=== PATIENT | male | born 1960 | race Caucasian/White ===

== ENCOUNTER 2023-12-28 09:37 | Emergency (ER) | payer BC, SELFPAY ==
[2023-12-28 09:39] VITALS: BP 124/90
[2023-12-28 09:48] VITALS: BP 133/90
[2023-12-28 09:49] VITALS: BMI 26.4
--- NOTE | 2023-12-28 09:49 | ED.GENMED ---
History of Present Illness
General
Chief Complaint: Musculo-Skeletal Complaint
Source: patient
Exam Limitations: none
Time Seen by Provider: 12/28/23 09:46
Travel History
Have you had any contact with someone who has COVID-19?: No
Do you have any symptoms of coronavirus? Fever > 100 degrees, chills, cough, shortness of breath, sore throat, loss of taste or smell, muscle aches, or headache?: No
History of Present Illness
History of Present Illness:
63-year-old male complaining of left upper arm pain. Has been there for 2 weeks. Constant but at times waxes and wanes. No chest pain no shortness of breath. At times pain does radiate up towards the left side of the neck. No unusual headache.
No neurologic symptoms. No numbness tingling or weakness. No cardiac history.
Past History
Past History
ED Past Medical History: HTN and Hypercholesterolemia
ED Past Surgical History: Other (Inguinal hernia repair x4, umbilical hernia repair x1)
Social History
Tobacco: Non-smoker
Alcohol: Occasional
Drug: None
Personal:
Living: with family
Family History
Family History: Other (No significant)
Review of Systems
Review of Systems
All Other Systems: Not applicable
Constitutional: Denies fever
Respiratory: Denies trouble breathing
Cardiac: Denies chest pain, diaphoresis, palpitations or syncope
Phy Exam
Physical Exam
Physical Exam:
GENERAL: Alert and oriented in no apparent distress
EYE: Orbits normal.
NECK: Supple, no carotid bruit. Nontender
CARDIAC: Regular rate and rhythm without any obvious murmurs.
LUNGS: Clear breath sounds,normal
ABDOMEN: Soft, without focal tenderness or distention
NEUROLOGICAL: Alert and oriented , grossly non-focal. Layout Worker normal. Interosseous intact. Flexion extension at the wrist normal. Biceps intact. No shoulder pain with abduction at the shoulder.
SKIN: Warm and dry, no rash or lesion, no discoloration, skin intact.
MUSCULOSKELETAL: No edema,no deformity.Good color. Some pain with flexion at the shoulder and at this point patient points towards the biceps insertion as to the location of his discomfort. Mildly tender at this location. No arm swelling. Good
distal pulses and color.
PSYCH: Normal and appropriate interaction.
Course
Orders/Labs/Results
Orders:
Orders
12/28/23 09:41
EKG [Electrocardiogram (*1)] Urgent
Reason for Study: Chest Pain
EKG- Treatment ONCE
12/28/23 09:57
Cardiac Monitoring- Treatment ONCE
IV Insert/Care/Rem.- Treatment PRN
12/28/23 10:00
Basic Metabolic Panel Urgent
Complete Blood Count/With Diff Urgent
D-Dimer Urgent
Troponin I Urgent
12/28/23 11:15
CR Cervical Spine 4 Or 5 Vw Urgent
Comment:
Reason For Exam: Left neck and upper arm pain
CXR2 [CR Chest - 2 Views ] Urgent
Comment:
Reason For Exam: Left neck and upper arm pain
Shoulder, Left 2 View CR [CR Shoulder - Left Min 2 View*] Urgent
Comment:
Reason For Exam: Left neck and upper arm pain
12/28/23 12:25
Ketorolac [Toradol] 15 mg IV NOW STA
Abnormal Lab Results
12/28/23
10:00
MCH 31.7 H pg
(27.0-31.0)
Lymphocytes % 18.6 L %
(20.5-51.1)
12/28/23 10:00
12/28/23 10:00
Vital Signs
Initial and Last Documented VS:
Initial Vital Signs
Temp Pulse Resp BP Pulse Ox
98.2 F 89 18 124/90 95
12/28/23 09:39 12/28/23 09:39 12/28/23 09:39 12/28/23 09:39 12/28/23 09:39
Last Documented Vital Signs
Temp Pulse Resp BP Pulse Ox
98.2 F 89 18 131/91 96
12/28/23 09:39 12/28/23 09:39 12/28/23 09:39 12/28/23 12:20 12/28/23 12:45
MDM/Problems Addressed
Differential Diagnosis Includes:
Continuous left upper arm pain for 2 weeks. 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 No chest pain shortness of breath. Highly doubt cardiac with continual symptoms. No exertional component. Some
positional component. Some tenderness at the biceps tendon. Suspect radiculopathy or tendinitis. However for completeness and a family history of clotting issues a D-dimer will be done along with cardiac testing
*Radiology
Radiology exam reviewed: radiology read reviewed (Hiatal hernia by chest x-ray. Shoulder negative. Degenerative changes cervical spine)
*Pulse Oximetry
Patient hypoxic: no
*EKG
Interpreted by ED Provider?: Yes
Interpretation: normal
Comparison EKG: no changes
Heart Rate: 72
Rate: normal
Rhythm: sinus
[place]: normal axis
Interval: normal interval
QRS Pattern: normal QRS
Ischemia: no ischemia
*Critical Care Note
Total Time (30-74mins, 75-104mins- exclusive of procedures): Not Applicable
Update Note
Update Note:
Patient is remained stable and nontoxic. Relief with Toradol. Ongoing symptoms for weeks basically constant. For this reason no indication to repeat troponin and EKG. Highly doubt cardiac etiology. Most consistent with musculoskeletal or
radiculopathy. Patient will follow-up with orthopedics and cardiology completeness
ED Attending Note
-
Portions of this chart may have been created with voice recognition software.� Occasional wrong word or��sound alike� substitutions may have occurred due to the inherent limitations of voice recognition software.
Discharge Plan
Departure
Patient Disposition: Home (Routine Discharge)
Date of Disposition: 12/28/23
Time of Disposition: 13:04
Patient with high blood pressure during this ER visit?: Yes
Discharge Problem:
Left arm pain, Suspect radiculopathy/musculoskeletal
Instructions: Chest Pain DCA Follow Up, BLOOD PRESSURE
Prescriptions:
No Action
fluticasone propion-salmeterol [Advair Diskus] 1 EACH blister with device
1 puff inhalation R BID
atorvastatin 20 MG tablet
20 mg PO QPM
hydroxyzine HCl 10 MG tablet
10 mg PO TIDPRN PRN (Reason: anxiety)
amoxicillin-pot clavulanate 1 TABLET tablet
1 tab PO Q12 Qty: 10 0RF
oxycodone-acetaminophen 5 MG/325 MG tablet
1 tab PO Q4HPRN PRN (Reason: moderate to severe pain) Qty: 5 0RF
ferrous sulfate 324 mg (65 mg iron) tablet,delayed release (DR/EC)
324 mg PO BID 14 Days Qty: 28 0RF
vitamin H41-qaihu acid 500-400 mcg tablet
1 tab PO DAILY 14 Days Qty: 14 0RF
Referrals:
Anoop Gomez MD [Active] - Follow up in 5-7 days
Mauricio Arvizu MD [Family Provider] -
Activity Restrictions/Additional Instructions:
I gave you the name of an orthopedist to call for follow-up
Although I know you are not having chest pain the chest pain instructions will allow for close cardiac follow-up
Follow-up closely with your primary physician also
Return with increased pain arm swelling any chest pain shortness of breath or any other concerning symptoms
Interventions
Interventions:
*Risk Screen - Suicide Last Done: 12/28/23 09:39
*General Assessment Last Done: 12/28/23 09:39
*ED COVID-19 Vaccine History Last Done: 12/28/23 09:44
ED-Musculoskeletal Assessment Last Done: 12/28/23 09:51
[2023-12-28 10:27] LABS: % Basophils 1.4 % (0-2); % Eosinophils 3.5 % (0-6); % Immature Granulocytes 0.3 % (0-0.5); % Lymphocytes 18.6 % (20.5-51.1); % Monocytes 6.4 % (1.7-9.3); % Neutrophils 69.8 % (42.2-75.2); Absolute Basophils 0.1 10^3/uL (0-0.2); Absolute Eosinophils 0.2 10^3/uL (0-0.7); Absolute Lymphocytes 1.2 10^3/uL (1.2-3.4); Absolute Monocytes 0.4 10^3/uL (0.1-0.6); Absolute Neutrophils 4.6 10^3/uL (1.4-6.5); Hematocrit 43.2 % (39.0-52.0); Hemoglobin 15.2 g/dL (13.0-18.0); Mean Corp Hgb Conc. 35.2 g/dL (33.0-37.0); Mean Corpuscular Hgb 31.7 pg (27.0-31.0); Mean Platelet Volume 10.1 fL (7.4-10.4); Nucleated Red Blood Cells % 0 % (-); Platelet Count 254 10^3/uL (130-400); Red Cell Dist. Width 12.6 % (11.5-14.5); White Blood Cell Count 6.6 10^3/uL (4.8-10.8)
[2023-12-28 10:33] LABS: Blood Urea Nitrogen 15 mg/dl (9-20); Carbon Dioxide 26 mmol/L (22-30); Chloride 105 mmol/L (98-107); Estimated Creatinine Clearance 101 ml/min; Glucose 99 mg/dl (70-99); Potassium 4.1 mmol/L (3.5-5.1); Sodium 135 mmol/L (135-145); eGFR > 60.00
[2023-12-28 10:43] LABS: Troponin I < 0.012 ng/ml
[2023-12-28 10:58] LABS: D-Dimer < 0.27 ug/mlFEU (0.00-0.50)
[2023-12-28 11:00] VITALS: BP 119/88
[2023-12-28 12:20] VITALS: BP 131/91
[2023-12-28] MEDS: TORADOL 15 MG IV (12:27)
[2023-12-28 13:00] VITALS: BP 123/85
== END 2023-12-28 13:20 | disposition home or self-care (01) ==
LOC: EMR 09:37
PROVIDERS: EMERGENCY PHYSICIAN Emergency Medicine; FAMILY PHYSICIAN Family Medicine
DX: M79.602 Pain in left arm (principal); I10 Essential (primary) hypertension
CPT/HCPCS: 99285; 96374; 71046; 72050; 73030; 80048; 84484; 85025; 85379; 93005

== ENCOUNTER 2024-05-12 14:39 | Emergency (ER) | payer BC, SELFPAY ==
[2024-05-12 14:42] VITALS: BP 154/91
[2024-05-12] MEDS: TYLENOL 650 MG PO (16:07)
[2024-05-12] MEDS: TORADOL 30 MG IM (16:07)
[2024-05-12] MEDS: DECADRON 10 MG PO (16:07)
[2024-05-12 16:19] LABS: Urine Albumin Negative (Neg - Trace); Urine Bilirubin Negative (Negative); Urine Character Clear (Clear); Urine Color Yellow; Urine Glucose Negative (Negative); Urine Ketone Trace (Negative); Urine Leukocyte Negative (Negative); Urine Nitrite Negative (Negative); Urine Occult Blood Negative (Negative); Urine Urobilinogen Negative (Neg - 1+)
[2024-05-12 16:25] VITALS: BP 146/92
--- NOTE | 2024-05-12 17:18 | ED.GENMED ---
History of Present Illness
General
Chief Complaint: Chest Problem
Source: patient
Exam Limitations: none
Time Seen by Provider: 05/12/24 15:50
Nursing documentation reviewed up to this point in time: agreed with
History of Present Illness
History of Present Illness:
63-year-old male with past medical history of hypertension hyperlipidemia, asthma presenting to the emergency department today with concerns of ongoing right low back discomfort of the past 8 weeks. Had a fall 8 weeks ago landed on his right
posterior ribs and low back has had ongoing discomfort since. Previously took steroids and muscle relaxer had initial improvement but worsening over the past week or so. Pain is somewhat worse with inspiration. Denies any numbness weakness
changes in bowel movements or urination no chest pain or shortness of breath.
Past History
Past History
ED Past Medical History: HTN and Hypercholesterolemia
ED Past Surgical History: Other (Inguinal hernia repair x4, umbilical hernia repair x1)
Social History
Tobacco: Non-smoker
Alcohol: Occasional
Drug: None
Personal:
Living: with family
Family History
Family History: Other (No significant)
Review of Systems
Review of Systems
Allergies reviewed?: Yes
All Other Systems: ROS reviewed and negative except as documented in HPI and ROS
Phy Exam
Physical Exam
Physical Exam:
GENERAL: Alert , in no apparent distress
EYE: pupils equal and reactive
NECK: Supple, no significant adenopathy.
ENT: o/p clr, mmm.
CARDIAC: Regular rate and rhythm .
LUNGS: Clear breath sounds bilaterally, no acute respiratory distress, no wheezes/rales/rhonchi
ABDOMEN: Soft, without focal tenderness, no r/g, no cvat
NEUROLOGICAL: Alert and oriented, no focal neuro deficits
SKIN: Warm and dry, skin intact.
MUSCULOSKELETAL: No edema, well perfused.
PSYCH: Normal and appropriate interaction.
Course
Orders/Labs/Results
Orders:
Orders
05/12/24 14:45
Ribs, Right 3 View W/PA Chest [CR Ribs-right 3 Vw W/pa Chest*] Urgent
Comment:
Reason For Exam: fall with rib pain
05/12/24 15:59
Acetaminophen [Tylenol] 650 mg PO NOW STA
Dexamethasone [Decadron] 10 mg PO NOW STA
Ketorolac [Toradol] 30 mg IM NOW STA
Lumbar Spine, 2 or 3 View [CR Lumbar Spine 2 Or 3 Views] Urgent
Comment:
Reason For Exam: low backl pain, right side
05/12/24 16:08
Urinalysis Reflex To Culture Urgent
Date Specimen was Collected: 05/12/24
Time Specimen was Collected: 16:02
Abnormal Lab Results
05/12/24
16:08
Urine Ketones Trace A
(Negative)
Vital Signs
Initial and Last Documented VS:
Initial Vital Signs
Temp Pulse Resp BP Pulse Ox
98.4 F 96 18 154/91 96
05/12/24 14:42 05/12/24 14:42 05/12/24 14:42 05/12/24 14:42 05/12/24 14:42
Last Documented Vital Signs
Temp Pulse Resp BP Pulse Ox
98.4 F 77 17 133/87 95
05/12/24 14:42 05/12/24 19:15 05/12/24 19:15 05/12/24 19:06 05/12/24 19:15
MDM/Problems Addressed
MDM/Problems Addressed:
63-year-old male presenting to the emergency department today with concerns of low discomfort worsening over the past week or so initially injured 8 weeks ago falling and hitting his low back and lower ribs. Previously took steroids and muscle
relaxer had some relief that time but worsening more recently. Vital signs normal upon arrival urinalysis normal no specific CVA tenderness no systemic symptoms or symptoms consistent with internal organ injury. Pain is somewhat worse with
specific movements and twisting of low back. X-rays of the ribs without acute findings. Lumbar x-ray without acute abnormalities. Patient claims that symptoms significantly improved after treatment here. Stable for discharge return precautions
given.
*Critical Care Note
Total Time (30-74mins, 75-104mins- exclusive of procedures): Not Applicable
ED Attending Note
-
Portions of this chart may have been created with voice recognition software.� Occasional wrong word or��sound alike� substitutions may have occurred due to the inherent limitations of voice recognition software.
Discharge Plan
Departure
Patient Disposition: Home (Routine Discharge)
Date of Disposition: 05/12/24
Time of Disposition: 19:46
Patient with high blood pressure during this ER visit?: No
Condition: Good
Covid-19: Not Applicable
Discharge Problem:
Back pain
Instructions: Muscle and Bone Pain (DC)
Prescriptions:
New
diazepam [Valium] 5 mg tablet
5 mg PO BID PRN (Reason: muscle spasm) Qty: 7 0RF
prednisone 20 mg tablet
40 mg PO DAILY 4 Days Qty: 8 0RF
ibuprofen 600 mg tablet
600 mg PO TID PRN (Reason: Pain) Qty: 14 0RF
No Action
fluticasone propion-salmeterol [Advair Diskus] 1 EACH blister with device
1 puff inhalation R BID
atorvastatin 20 MG tablet
20 mg PO QPM
hydroxyzine HCl 10 MG tablet
10 mg PO TIDPRN PRN (Reason: anxiety)
amoxicillin-pot clavulanate 1 TABLET tablet
1 tab PO Q12 Qty: 10 0RF
oxycodone-acetaminophen 5 MG/325 MG tablet
1 tab PO Q4HPRN PRN (Reason: moderate to severe pain) Qty: 5 0RF
ferrous sulfate 324 mg (65 mg iron) tablet,delayed release (DR/EC)
324 mg PO BID 14 Days Qty: 28 0RF
vitamin P76-cxset acid 500-400 mcg tablet
1 tab PO DAILY 14 Days Qty: 14 0RF
Referrals:
Santiago Gomez MD [Active] - Follow up in 5-7 days
Mauricio Arvizu MD [Family Provider] -
Activity Restrictions/Additional Instructions:
You came to the emergency department today with concerns of discomfort to your back and ribs after a fall. Here your reassuring assessment. Please take the prescribed medications. Please follow closely with the back doctor. Return to the
emergency department for any worsening, new or concerning symptoms.
Interventions
Interventions:
*Risk Screen - Suicide Last Done: 05/12/24 14:44
*General Assessment Last Done: 05/12/24 14:44
*Neglect/Abuse Screening Last Done: 05/12/24 14:44
*Nursing Disposition Last Done: 05/12/24 20:14
ED- Cardiac Assessment Last Done: 05/12/24 16:18
ED-Musculoskeletal Assessment Last Done: 05/12/24 16:18
ED- Pulmonary Assessment Last Done: 05/12/24 16:18
Discharge Date and Time
Discharge Date/Time: 05/12/24 20:21
Print Language: INDONESIAN
[2024-05-12 19:06] VITALS: BP 133/87
== END 2024-05-12 20:21 | disposition home or self-care (01) ==
LOC: EMR 14:39
PROVIDERS: Physician Assistant; EMERGENCY PHYSICIAN Emergency Medicine; FAMILY PHYSICIAN Family Medicine
DX: M54.50 Low back pain, unspecified (principal); R07.81 Pleurodynia; W19.XXXA Unspecified fall, initial encounter; I10 Essential (primary) hypertension; E78.00 Pure hypercholesterolemia, unspecified; J45.909 Unspecified asthma, uncomplicated; K57.92 Diverticulitis of intestine, part unspecified, without perforation or abscess without bleeding; N40.0 Benign prostatic hyperplasia without lower urinary tract symptoms; F41.9 Anxiety disorder, unspecified
CPT/HCPCS: 99284; 96372; 71101; 72100; 81003